=== PATIENT | male | born 2005 | race Caucasian/White ===

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

== ENCOUNTER 2024-01-25 15:38 | Emergency (ER) | payer OTHER ==
[~2024-01-25] VITALS: Ht 175.3 cm; Wt 108.0 kg
[2024-01-25 19:15] VITALS: BP 140/85; TEMP 97.8; O2SAT 97
== END 2024-01-25 19:22 | disposition home or self-care (01) ==
LOC: M ED 15:38
DX: Z11.52 Encounter for screening for COVID-19 (principal); J45.909 Unspecified asthma, uncomplicated; F41.9 Anxiety disorder, unspecified; F84.0 Autistic disorder